=== PATIENT | female | born 1935 | race Caucasian/White ===

== ENCOUNTER 2016-03-29 13:56 | Emergency (ER) | payer MEDICARE, OTHER ==
--- NOTE | 2016-03-29 15:07 | RAD ---
Exams: Three-view left ankle and two-view left lower leg COMPARISON: None INDICATION: Twisted left ankle while stepping down from a step. TECHNIQUE: AP, lateral and oblique views of the left ankle and AP and lateral views of the left lower leg were obtained. FINDINGS: Soft tissue swelling is present about the ankle, particularly laterally, and a small moderate joint effusion is present. Osteopenia, which limited evaluation for nondisplaced fracture. No acute displaced fracture is identified within the lower leg or ankle. Ankle mortise is intact. IMPRESSION: Lateral soft tissue swelling about the ankle, as well as a joint effusion, however no acute osseous abnormality is identified within the ankle or left lower leg. Osteopenia, which limits evaluation for nondisplaced fracture.
[2016-03-29] MEDS ORDERED: HYDROCODONE/ACETAMINOPHEN 5/325MG TABLET ONE (15:54)
== END 2016-03-29 16:18 | disposition home or self-care (01) ==
LOC: ED 13:56
DX: S93.402A Sprain of unspecified ligament of left ankle, initial encounter (principal); J43.9 Emphysema, unspecified; N18.3 Chronic kidney disease, stage 3 (moderate); W10.9XXA Fall (on) (from) unspecified stairs and steps, initial encounter; Y92.9 Unspecified place or not applicable
CPT/HCPCS: 73610; 73590; 99283 ×2; A9270